=== PATIENT | male | born 2000 | race Two or more races ===

== ENCOUNTER 2020-06-13 19:17 | Emergency (ER) | payer MEDICAID, OTHER ==
[~2020-06-13] VITALS: Ht 170.2 cm; Wt 74.8 kg
[2020-06-13 19:45] VITALS: BP 148/85
[2020-06-13] MEDS ORDERED: IBUPROFEN600 M1 ORAL (20:32)
[2020-06-13 20:45] VITALS: BP 120/88
--- NOTE | 2020-06-14 09:42 | Diagnostic Imaging Report ---
Indication: Ankle pain Technique: 3 views of the left ankle Comparison: None Findings: Bony mineralization within normal limits. No acute fractures identified. Ankle mortise intact on these nonstress views. No ankle joint effusion. Imaged portions of the hindfoot without acute abnormality. No radiographic foreign body. Impression: No acute fracture. Ankle mortise intact.
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
== END 2020-06-13 20:45 | disposition home or self-care (01) ==
LOC: EMR 19:45
DX: S93.402A Sprain of unspecified ligament of left ankle, initial encounter (principal); V43.62XA Car passenger injured in collision with other type car in traffic accident, initial encounter; Y92.411 Interstate highway as the place of occurrence of the external cause
CPT/HCPCS: 99283